=== PATIENT | male | born 1960 | race Caucasian/White ===

== ENCOUNTER → 2021-03-08 | Outpatient (CLI) | payer OTHER ==
[~2021-03-08] VITALS: Ht 182 cm; Wt 118.0 kg
[~2021-03-08] MED LIST: ACETAMINOPHEN 500 MG TAB (TYLENOL) PO PRN; CASIRIVIMAB/IMDEVIMAB 1,200 MG in NS (IVPB) 250 ML IV ONE; EPINEPHrine INJECTION 1 MG/ML AMP IM PRN; ONDANSETRON 4 MG/2 ML (SDV) Z0FRAN IV PRN; diphenhydrAMINE 50 MG/ML INJ (BENADRYL) IV PRN
[2021-03-08 12:12] VITALS: BP 155/91
[2021-03-08 14:22] VITALS: BP 157/79
== END ==
LOC: INFUSION 12:03
PROVIDERS: ATTEND Registered Nurse Neonatal Intensive Care
DX: U07.1 COVID-19 (principal)